=== PATIENT | female | born 1940 | race Caucasian/White ===

== ENCOUNTER 2018-08-30 21:16 | Emergency (ER) | payer MEDICARE, OTHER, MEDICAID ==
[2018-08-30] MEDS ORDERED: Ibuprofen Susp 100 MG/5 ML 5 ML UD Cup PO ONE (22:10)
[2018-08-30] MEDS ORDERED: Dexamethasone 4 MG/ML SDV PO ONE (22:10)
--- NOTE | 2018-08-30 22:11 | EDM.PDOC ---
ED HPI GENERAL MEDICAL PROBLEM - General Chief Complaint: ENT Problem Stated Complaint: SORE THROAT Time Seen by Provider: 08/30/18 21:50 Source of Information: Reports: Patient History Limitations: Reports: No Limitations - History of Present Illness INITIAL COMMENTS - FREE TEXT/NARRATIVE: 77-year-old female who reports on 08/28/2018, she awoke with malaise and sore throat with nasal congestion and sinus pressure. She had no ear pain. She had no fever. She was seen at [facility] where she had what sounds like a strep screen that she reports was negative. They told her that she had sinus congestion and allergic sinusitis and the patient was placed on Flonase and told to take Tylenol for discomfort. Yesterday she reports that she awoke with no voice and a hoarse voice and those symptoms have persisted today throughout the day. She has not had any problems breathing. She's not had any problems swallowing. She does have a persistent sore throat that she rates as a 4/10. It is a sharp and sore pain. She has no pains elsewhere. She has had no nausea or vomiting. She has had no chest pain. She has no leg swelling. There are no other associated signs or symptoms. There are no other modifying factors. 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, Other Medication(s) (Flonase nasal spray ) - Related Data Allergies Allergy/AdvReac Type Severity Reaction Status Date / Time No Known Allergies Allergy Verified 08/30/18 21:39 Home Meds: Home Meds ALPRAZolam [Alprazolam] 0.5 tab PO TID 08/30/18 [History] Acetaminophen [Tylenol Extra Strength] 1,000 mg PO Q6H PRN 08/30/18 [History] Fluticasone Propionate [Flonase Allergy Relief] 2 spray NS DAILY 08/30/18 [ History] Propranolol [Inderal LA 24 Hr] 80 mg PO DAILY 08/30/18 [History] Triamterene/Hydrochlorothiazid [Triamterene-HCTZ 37.5-25 MG] 1 cap PO DAILY [History] Past Medical History Cardiovascular History: Reports: Hypertension Neurological History: Reports: Other (See Below) (Tremors) Psychiatric History: Reports: Anxiety Oncologic (Cancer) History: Reports: Breast - Past Surgical History GI Surgical History: Reports: Appendectomy, Cholecystectomy Female Surgical History: Reports: Other (See Below) (Right breast lumpectomy for cancer followed with radiation treatment) Social & Family History - Tobacco Use Smoking Status *Q: Former Smoker (Quit 7-8 years ago) Years of Tobacco use: 50 Used Tobacco, but Quit: No - Alcohol Use Days Per Week of Alcohol Use: 2 Number of Drinks Per Day: 2 Total Drinks Per Week: 4 - Living Situation & Occupation Occupation: Retired ED ROS ENT - Review of Systems Review Of Systems: See Below Constitutional: Reports: No Symptoms HEENT: Reports: Throat Pain, Other (Course voice and nasal congestion.). Denies : Ear Pain Respiratory: Reports: No Symptoms Cardiovascular: Reports: No Symptoms GI/Abdominal: Reports: No Symptoms : Reports: No Symptoms Musculoskeletal: Reports: No Symptoms Skin: Reports: No Symptoms Neurological: Reports: No Symptoms Hematologic/Lymphatic: Reports: No Symptoms Immunologic: Reports: No Symptoms ED EXAM, ENT - Physical Exam Exam: See Below Exam Limited By: Uncooperative General Appearance: Alert, Mild Distress, Other (No respiratory distress) Eye Exam: Bilateral Eye: EOMI, Normal Inspection, PERRL Ears: Normal External Exam, Normal Canal, Hearing Grossly Normal, Normal TMs Nose: No Blood, Nasal Discharge, Nasal Swelling (Nasal mucosal welling) Mouth/Throat: Normal Inspection, Normal Lips, Normal Oropharynx Head: Atraumatic, Normocephalic Neck: Normal Inspection, Supple, Non-Tender, Full Range of Motion, Other (Horse voice area and no stridor.) Respiratory/Chest: No Respiratory Distress, Lungs Clear, Normal Breath Sounds, No Accessory Muscle Use, Chest Non-Tender Cardiovascular: Normal Peripheral Pulses, Regular Rate, Rhythm, No JVD GI/Abdominal: Normal Bowel Sounds, Soft, Non-Tender, No Mass Back: Normal Inspection Extremities: Normal Inspection, Normal Range of Motion, Non-Tender, No Pedal Edema, Normal Capillary Refill Neurological: Alert, Oriented, CN II-XII Intact, Normal Cognition, No Motor/ Sensory Deficits Skin: Warm, Dry, Intact, Normal Color, No Rash Course - Vital Signs Last Recorded V/S: Last Vital Signs Temp 36.3 C 08/30/18 21:30 Pulse 53 L 08/30/18 21:30 Resp 16 08/30/18 21:30 BP 138/87 08/30/18 21:30 Pulse Ox 95 08/30/18 21:30 - Orders/Labs/Meds Meds: Medications Discontinued Medications Generic Name Dose Route Start Last Admin Trade Name Cristine PRN Reason Stop Dose Admin Dexamethasone 8 mg 08/30/18 22:10 08/30/18 22:17 Dexamethasone PO 08/30/18 22:11 8 mg ONETIME ONE Administration Ibuprofen 400 mg 08/30/18 22:10 08/30/18 22:16 Motrin 100 Mg/5 Ml Susp PO 08/30/18 22:11 400 mg ONETIME ONE Administration - Re-Assessments/Exams Free Text/Narrative Re-Assessment/Exam: 08/30/18 22:06: Patient with laryngitis. Her vital signs are normal. She has no evidence of difficulty breathing or trouble swallowing. She is nontoxic at this point. I have told her to continue the Flonase that she is using. She should also use warm saltwater gargles. In treating her with a single dose of Decadron here in the emergency department. She is to have voice rest and she is to drink plenty of fluids. She is to follow-up with her primary doctor as needed. Departure - Departure Time of Disposition: 22:15 Disposition: Home, Self-Care 01 Condition: Good Clinical Impression: Laryngitis URI (upper respiratory infection) Qualifiers: URI type: acute laryngitis Qualified Code(s): J04.0 - Acute laryngitis - Discharge Information Instructions: Viral Respiratory Infection, [id number], Laryngitis, Easy-to- Read Referrals: Honey Perez, SUPERVISOR MIXING [Primary Care Provider] - Forms: ED Department Discharge Additional Instructions: You appear to have laryngitis. This is most probably associated with a viral upper respiratory infection. You were given Decadron (a steroid and anti- inflammatory medication) in the emergency department to hopefully help decrease the swelling in your throat. You should have a voice rest. You should drink plenty of fluids. Continue to use the Flonase nasal spray as directed by your doctor. You may take Tylenol and ibuprofen as needed for pain. Drink plenty of fluids. Do warm saltwater gargles for comfort. Follow-up with your primary doctor next week if her symptoms are not resolving. Back to the emergency department for trouble breathing, trouble swallowing, high fever, vomiting or any other concerning sign or symptom.
== END 2018-08-30 22:30 | disposition home or self-care (01) ==
LOC: FB.ED 21:16
DX: J04.0 Acute laryngitis (principal); I10 Essential (primary) hypertension; F41.9 Anxiety disorder, unspecified; Z79.899 Other long term (current) drug therapy; Z87.891 Personal history of nicotine dependence
CPT/HCPCS: 99282; A9270; J1100; 99283

== ENCOUNTER 2019-01-04 10:43 | Emergency (ER) | payer MEDICARE, OTHER ==
--- NOTE | 2019-01-04 11:14 | EDM.PDOC ---
ED HPI GENERAL MEDICAL PROBLEM - General Stated Complaint: COUGH Time Seen by Provider: 01/04/19 10:55 Source of Information: Reports: Patient History Limitations: Reports: No Limitations - History of Present Illness INITIAL COMMENTS - FREE TEXT/NARRATIVE: Patient presented to the ED because of cough and cold x 2 weeks. The cough is productive of yellowish phlegm. Denies having any fever but have chills nor dyspnea. - Related Data Allergies Allergy/AdvReac Type Severity Reaction Status Date / Time No Known Allergies Allergy Verified 01/04/19 11:09 Home Meds: Home Meds ALPRAZolam [Alprazolam] 0.5 tab PO TID 08/30/18 [History] Acetaminophen [Tylenol Extra Strength] 1,000 mg PO Q6H PRN 08/30/18 [History] Fluticasone Propionate [Flonase Allergy Relief] 2 spray NS BID 08/30/18 [History ] Propranolol [Inderal LA 24 Hr] 80 mg PO DAILY 08/30/18 [History] Triamterene/Hydrochlorothiazid [Triamterene-HCTZ 37.5-25 MG] 1 cap PO DAILY [History] Azithromycin [Zithromax] 250 mg PO DAILY #6 tab 01/04/19 [Rx] Penicillin V Potassium [Veetids] 250 mg PO BID 01/04/19 [History] Propranolol HCl [Propranolol] 80 mg PO DAILY 01/04/19 [History] Past Medical History Cardiovascular History: Reports: Hypertension Other Cardiovascular History: Heart murmur tested in 2019. Neurological History: Reports: Other (See Below) (Tremors) Other Neuro History: Tremors. Psychiatric History: Reports: Anxiety Oncologic (Cancer) History: Reports: Breast Other Oncologic History: Early breast cancer treated with radiation. - Past Surgical History GI Surgical History: Reports: Appendectomy, Cholecystectomy Female Surgical History: Reports: Other (See Below) (Right breast lumpectomy for cancer followed with radiation treatment) Social & Family History - Living Situation & Occupation Occupation: Retired ED ROS GENERAL - Review of Systems Review Of Systems: See Below Constitutional: Reports: No Symptoms HEENT: Reports: No Symptoms Respiratory: Reports: Cough, Sputum. Denies: Shortness of Breath, Wheezing Cardiovascular: Reports: No Symptoms Endocrine: Reports: No Symptoms GI/Abdominal: Reports: No Symptoms, Abdominal Pain Musculoskeletal: Reports: No Symptoms Skin: Reports: No Symptoms Neurological: Reports: No Symptoms Psychiatric: Reports: No Symptoms Hematologic/Lymphatic: Reports: No Symptoms Immunologic: Reports: No Symptoms ED EXAM, GENERAL - Physical Exam Exam: See Below Exam Limited By: No Limitations General Appearance: Alert, WD/WN, No Apparent Distress Ear Exam: Right Ear: Erythema Nose: Normal Inspection, Normal Mucosa, No Blood Throat/Mouth: Normal Inspection, Normal Lips, Normal Teeth, Normal Gums, Normal Oropharynx Head: Atraumatic, Normocephalic Neck: Normal Inspection, Supple, Non-Tender, Full Range of Motion Respiratory/Chest: No Respiratory Distress, Lungs Clear, Normal Breath Sounds, No Accessory Muscle Use, Chest Non-Tender, Rhonchi. No: Crackles, Wheezing Cardiovascular: Normal Peripheral Pulses, Regular Rate, Rhythm, No Edema, No Gallop, No JVD, No Murmur GI/Abdominal: Normal Bowel Sounds, Soft, Non-Tender, No Organomegaly, No Distention, No Abnormal Bruit, No Mass, Pelvis Stable Course - Vital Signs Text/Narrative:: reassurance will start on antibiotics Last Recorded V/S: Last Vital Signs Temp 36.6 C 01/04/19 11:00 Pulse 60 01/04/19 11:00 Resp 18 01/04/19 11:00 BP 114/88 01/04/19 11:00 Pulse Ox 96 01/04/19 11:00 Departure - Departure Time of Disposition: 11:10 Disposition: DC/Tfer to [facility] 03 Condition: Good Clinical Impression: Acute bronchitis - Discharge Information Prescriptions: Azithromycin [Zithromax] 250 mg PO DAILY #6 tab Instructions: Acute Bronchitis, Adult, [id number] Referrals: Honey Perez HEALTH SAFETY COORDINATOR [Primary Care Provider] - Forms: ED Department Discharge Additional Instructions: Please read discharge instructions on acute bronchitis increase oral fluids take [id number]-[id number] as directed follow up as needed
== END 2019-01-04 11:25 ==
LOC: FB.ED 10:43
DX: J20.9 Acute bronchitis, unspecified (principal); F41.9 Anxiety disorder, unspecified; Z79.899 Other long term (current) drug therapy
CPT/HCPCS: 99283; 99284